=== PATIENT | female | born 1940 | race Caucasian/White ===

== ENCOUNTER → 2018-02-20 | Outpatient (CLI) | payer MEDICARE ==
[~2018-02-20] MED LIST: ESTR0.5T PO; FLUO40CA9 PO; LEVO50TA5 PO; OLAN2.5T10 PO; OLAN2.5T3 PO; OMEP20TA62 PO; TEMA30CA6 PO
== END ==
LOC: STAR 12:49
PROVIDERS: ATTEND Orthopaedic Surgery
DX: Z01.818 Encounter for other preprocedural examination (principal); M17.11 Unilateral primary osteoarthritis, right knee
CPT/HCPCS: 87081; 93005

== ENCOUNTER 2019-02-20 17:48 | Emergency (ER) | payer MEDICARE ==
[~2019-02-20] VITALS: Ht 160 cm; Wt 76.0 kg
[~2019-02-20 17:48] MED LIST changes: +OXYC5CAP2 PO
--- NOTE | 2019-02-20 18:07 | NUR ---
PT BROUGHT BACK TO ROOM VIA WC WITH DAUGHTER. 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
--- NOTE | 2019-02-20 18:30 | NUR ---
C/O PERSISTENT R PELVIC/BUTTOCK PAIN AND "FOGGINESS".
--- NOTE | 2019-02-20 18:32 | NUR ---
ERP AT BS.
--- NOTE | 2019-02-20 19:34 | NUR ---
SARAH RN NOTE: PATIENT REPOSITIONED. PATIENT AND FAMILY UPDATED ON PLAN OF CARE. DAUGHTER AT BS.
[2019-02-20 20:28] VITALS: BP 134/63
--- NOTE | 2019-02-20 20:29 | NUR ---
ERP WAS IN FOR RE-EVAL. D/C INSTRUCTIONS & F/U APPT RV'WD WITH PT AND DAUGHTER, THEY VERBALIZE UNDERSTANDING. COPY OF RADIOLOGY RESULTS PROVIDED TO PT. PT AMBULATED OUT OF ED WITHOUT DIFFICULTY.
== END 2019-02-20 20:32 | disposition home or self-care (01) ==
LOC: ED 20:26
DX: S33.5XXA Sprain of ligaments of lumbar spine, initial encounter (principal); M25.551 Pain in right hip; W01.0XXA Fall on same level from slipping, tripping and stumbling without subsequent striking against object, initial encounter; Y93.89 Activity, other specified; Y92.89 Other specified places as the place of occurrence of the external cause; Y99.8 Other external cause status; Z88.5 Allergy status to narcotic agent; Z88.8 Allergy status to other drugs, medicaments and biological substances
CPT/HCPCS: 72110; 99283

== ENCOUNTER → 2021-03-25 | Outpatient (CLI) | payer MEDICARE | END | disposition home or self-care (01) | LOC: STAR 14:49 | PROVIDERS: ATTEND Pain Medicine Interventional Pain Medicine | DX: Z01.810 Encounter for preprocedural cardiovascular examination (principal); Z01.812 Encounter for preprocedural laboratory examination | CPT/HCPCS: 93005 ==